=== PATIENT | female | born 1995 | race Caucasian/White ===

== ENCOUNTER 2020-03-28 15:31 | Emergency (ER) | payer BC, SELFPAY ==
[2020-03-28 15:45] VITALS: BP 132/74; PULSE 105; RESP 20; TEMP 36.8; O2SAT 97; BMI 25.6
--- NOTE | 2020-03-28 16:06 | HMH.EDUTC ---
[facility] [place] Clinical Impression: Viral syndrome Pharyngitis Qualifiers: Pharyngitis/tonsillitis etiology: unspecified etiology Qualified Code(s): J02.9 - Acute pharyngitis, unspecified Disposition: Home, Self-Care Condition on Discharge: Good Instructions: Preventing the Spread of Coronavirus Discharge Instructions Additional Instructions: Drink plenty of fluids. Take tylenol for pain or fever. Take the medications as directed. Follow up with your regular doctor. GO TO THE ER FOR ANY WORSENING SYMPTOMS Prescriptions: Ondansetron [Zofran 4mg ODT] 4 mg PO Q8HP PRN #12 tab.rapdis PRN Reason: Nausea Transmission Status: Received by [facility] #[id number] Azithromycin [Z-Ernesto 250mg Tab*] 250 mg PO UD DOSE PK #6 tab Transmission Status: Received by [facility] #[id number] Referrals: Jean Grissom [Primary Care Provider] - Forms: Work/School Release Time of Disposition: 16:10 Medical Decision Making - Medical Records Medical records reviewed: No: I reviewed the patient's medical records. - Stu Inquiry Pt receiving controlled substance: No Vital Signs: 03/28/20 15:45 03/28/20 16:19 Temperature 98.2 F 98.2 F Temperature Source Oral Pulse Rate 105 H Pulse Rate [Left Brachial] 105 H Respiratory Rate 20 20 Blood Pressure 132/74 Blood Pressure [Right Arm] 132/74 Blood Pressure Mean [Right Arm] 93 Blood Pressure Source [Right Arm] Automatic Cuff Blood Pressure Position [Right Arm] Sitting 02 Sat by Pulse Oximetry 97 Oxygen Delivery Method Room Air Orders (Tests/Meds): ORDERS Category Date Time Status Covid-19 Nasal PCR ([facility]) Routine Lab 03/28/20 15:40 Received [facility] [place] HPI - General Stated complaint: sore throat cough sob headache weakness abd pain Time Seen by Provider: 03/28/20 16:06 Mode of Arrival: Ambulatory Source of Information: Patient Limitations: No Limitations Description of Symptoms (Recalled from Triage Doc. by RN): PATIENT C/O SORE THROAT, HEADACHE, BODY ACHES, CHILLS, FEVER, DIARRHEA, VOMITING, AND COUGH SINCE TUESDAY. NO KNOWN DIRECT SICK CONTACTS HEENT Symptoms (Recalled from RN notes): Yes Resp Symptoms (Recalled from RN notes): No Skin Symptoms (Recalled from RN notes): No MS Symptoms (Recalled from RN notes): Yes Functional Status (Recalled from RN notes): WNL - History of Present Illness Provider Complaint: She states that for the past 2 days she has had fever, chills, body aches, n/v/d. 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 - Related Data Previous Rx's Medication Instructions Recorded Azithromycin [Z-Ernesto 250mg Tab*] 250 mg PO UD DOSE PK #6 tab 03/28/20 Ondansetron [Zofran 4mg ODT] 4 mg PO Q8HP PRN #12 tab.rapdis 03/28/20 Allergies Allergy/AdvReac Type Severity Reaction Status Date / Time No Known Allergies Allergy Verified 03/28/20 15:54 - Worker's Comp Is this a Worker's Comp case?: No H History - Hepatitis A Screen Drug use history?: No High risk sexual behaviors?: No History of sexually transmitted infection?: No Currently employed?: No Childcare worker?: No Do you have indoor plumbing?: Yes Do you have electricity?: Yes Attestation statement:: This patient has been screened for Hepatitis A risk factors. I have reviewed the patient's past medical history: Yes - Social History Alcohol Intake: never Occupational Status: other ROS Obtained: Yes All systems reviewed & no additional complaints - Constitutional Constitutional: Reports system reviewed and no additional complaints, except as docu - Eyes Eyes: Reports system reviewed and no additional complaints, except as docu - ENT Ears, Nose, Mouth, and Throat: Reports system reviewed and no additional complaints, except as docu - Cardiovascular Cardiovascular: Reports system reviewed and no additional complaints, except as docu - Respiratory Respiratory: Yes system reviewed and
[2020-03-28 16:19] VITALS: BP 132/74; PULSE 105; RESP 20; TEMP 36.8; O2SAT 97
[2020-03-28 21:04] LABS: UTC Influenza A Antigen Negative (Negative); UTC Strep Screen (Rapid) Negative (Negative)
[2020-03-28 21:05] LABS: UTC Influenza B Antigen Negative (Negative)
== END 2020-03-28 16:20 | disposition home or self-care (01) ==
PROVIDERS: Emergency Provider Nurse Practitioner Family; PCP Family Medicine
DX: Z20.828 Contact with and (suspected) exposure to other viral communicable diseases (principal); B34.9 Viral infection, unspecified
CPT/HCPCS: 87804; 87880; 99202; U0003

== ENCOUNTER 2021-12-16 11:36 | Emergency (ER) | payer BC, SELFPAY ==
[2021-12-16 12:13] VITALS: BP 112/75; PULSE 79; RESP 16; TEMP 36.9; O2SAT 97; BMI 26.6
[2021-12-16 12:25] LABS: UTC Strep Screen (Rapid) Negative (Negative)
--- NOTE | 2021-12-16 12:46 | HMH.EDUTC ---
[facility] [place] Clinical Impression: Acute bronchitis Qualifiers: Bronchitis organism: unspecified organism Qualified Code(s): J20.9 - Acute bronchitis, unspecified Disposition: Home, Self-Care Condition on Discharge: Good Instructions: Acute Bronchitis, DI for Acute Bronchitis Additional Instructions: Drink plenty of fluids. Take tylenol or ibuprofen for pain or fever. Take the medications as directed. Follow up with your regular doctor. GO TO THE ER FOR ANY WORSENING SYMPTOMS Prescriptions: Brompheniramine/Pseudoephed/Dm [Bromfed Dm Cough Syrup] 5 ml PO Q6HP PRN #240 ml PRN Reason: Cough Transmission Status: Received by [facility] #[id number] methylPREDNISolone [Medrol] 4 mg PO DIRECTED 6 Days #21 packet Transmission Status: Received by [facility] #[id number] Azithromycin [Z-Ernesto 250mg Tab*] 250 mg PO UD DOSE PK #6 tab Transmission Status: Received by [facility] #[id number] Referrals: Jean Grissom [Primary Care Provider] - Forms: Work/School Release Medical Decision Making - Medical Records Medical records reviewed: No: I reviewed the patient's medical records. - Stu Inquiry Pt receiving controlled substance: No Vital Signs: 12/16/21 12:13 12/16/21 12:56 Temperature 98.4 F 98.4 F Temperature Source Oral Pulse Rate 79 Pulse Rate [Left] 79 Respiratory Rate 16 16 Blood Pressure 112/75 Blood Pressure [Right Arm] 112/75 Blood Pressure Mean [Right Arm] 87 02 Sat by Pulse Oximetry 97 - Lab Data Lab results reviewed: Yes: I reviewed the patient's lab results. Lab Results 12/16/21 12:13: Strep Scn [facility] [place] [facility] [place] - General Stated complaint: Cough, bodyaches, fever Time Seen by Provider: 12/16/21 12:46 Mode of Arrival: Ambulatory Source of Information: Patient Limitations: No Limitations Description of Symptoms (Recalled from Triage Doc. by RN): patient comes in with complaints of cough, fever, body aches. symptoms have been ongoing for 3 weeks. HEENT Symptoms (Recalled from RN notes): No Resp Symptoms (Recalled from RN notes): Yes Skin Symptoms (Recalled from RN notes): No MS Symptoms (Recalled from RN notes): No Functional Status (Recalled from RN notes): n/a - History of Present Illness Provider Complaint: She states that for the past 2 weeks she has had a cough, chest congestion, and she has felt bad. She has had 2 negative home covid-19 tests. - Related Data Previous Rx's Medication Instructions Recorded Azithromycin [Z-Ernesto 250mg Tab*] 250 mg PO UD DOSE PK #6 tab 03/28/20 Ondansetron [Zofran 4mg ODT] 4 mg PO Q8HP PRN #12 tab.rapdis 03/28/20 Azithromycin [Z-Ernesto 250mg Tab*] 250 mg PO UD DOSE PK #6 tab 12/16/21 Brompheniramine/Pseudoephed/Dm 5 ml PO Q6HP PRN #240 ml 12/16/21 [Bromfed Dm Cough Syrup] methylPREDNISolone [Medrol] 4 mg PO DIRECTED 6 Days #21 12/16/21 packet Allergies Allergy/AdvReac Type Severity Reaction Status Date / Time No Known Allergies Allergy Verified 12/16/21 12:19 - Worker's Comp Is this a Worker's Comp case?: No [facility] History - Hepatitis A Screen Attestation statement:: This patient has been screened for Hepatitis A risk factors. I have reviewed the patient's past medical history: Yes - Social History Alcohol Intake: never Occupational Status: other ROS Obtained: Yes All systems reviewed & no additional complaints - Constitutional Constitutional: Reports as per HPI - Eyes Eyes: Denies eye discharge - ENT Ears, Nose, Mouth, and Throat: Reports as per HPI - Cardiovascular Cardiovascular: Denies chest pain - Respiratory Respiratory: Reports chest congestion, Reports cough Physical Exam - General General appearance: alert, in no apparent distress - Head Head exam: atraumatic, normocephalic, normal inspection - Eye Eye exam: Present: normal appearance, PERRL, EOMI - ENT ENT exam: Present: normal exam, normal oropharynx, mucous membran
[2021-12-16 12:56] VITALS: BP 112/75; PULSE 79; RESP 16; TEMP 36.9
== END 2021-12-16 13:05 | disposition home or self-care (01) ==
PROVIDERS: Emergency Provider Nurse Practitioner Family; PCP Family Medicine
DX: J20.9 Acute bronchitis, unspecified (principal)
CPT/HCPCS: 87880; 99212; G0463

== ENCOUNTER 2023-01-14 09:58 | Emergency (ER) | payer BC, SELFPAY ==
[2023-01-14 09:59] VITALS: BP 115/81; PULSE 79; RESP 19; TEMP 37.1; O2SAT 99; BMI 25.9
--- NOTE | 2023-01-14 10:16 | EXP.UTC ---
Discharge Plan Disposition Patient Disposition: Home, Self-Care Condition: Good Prescriptions Prescriptions: New pseudoephedrine HCl [Sudafed 12 Hour] 120 mg tablet extended release 120 mg PO Q12H PRN (Reason: nasal congestion) Qty: 20 0RF No Action azithromycin 250 MG tablet 250 mg PO UD DOSE PK Qty: 6 0RF Rx Instructions: Take two (2) tablets today, then one (1) tablet days #2 thru #5 ondansetron 4 MG tablet,disintegrating 4 mg PO Q8HP PRN (Reason: Nausea) Qty: 12 0RF azithromycin 250 MG tablet 250 mg PO UD DOSE PK Qty: 6 0RF Rx Instructions: Take two (2) tablets today, then one (1) tablet days #2 thru #5 methylprednisolone 4 MG tablets,dose pack 4 mg PO DIRECTED 6 Days Qty: 21 0RF unbgoczuzgcincr-togwckdll-BR 118 ML syrup 5 ml PO Q6HP PRN (Reason: Cough) Qty: 240 0RF Referrals Follow up/Referrals: Gibran Grissom [Primary Care Provider] - See instructions Activity Restrictions/Add. Instructions Additional Instructions/Restrictions: *Monitor Temp, Over the counter Motrin or Tylenol as directed/as needed Tylenol every 4 hours and Motrin every 6 hours (as long as your family doctor has told you that you can take it) for fever or pain. and straight to ER if unable to lower temp less than 101.0 after medication given *Warm salt water gargles may help to soothe the throat *Throat Lozenges? *Warm fluids like tea with honey may help to soothe the throat? *Sleep elevated *Humidifier/Vaporizer *Flonase 2 sprays in each nostril daily but be aware that it may take 2-3 days before you notice improvement *Bromfed may cause drowsiness. Know how it effects you (your child) before driving, caring for small child, or sending your child to school. Not other antihistamines/allergy medications while taking bromfed Your throat swab was sent for culture. Those results are typically sent to your primary care. Be sure to follow up in 2-3 days with your family doctor/primary care physician if no improvement so they can review those result and treat if necessary. If you don?t have a primary care doctor, I recommend you get one but in the mean time, you will have to return to a walk in clinic Follow up IMMEDIATELY for new or worsening symptoms or no Noticeable improvement over the next 48-72 hours. 911 for difficulty breathing or swallowing You were tested for today for COVID19 your test result should be back in the next 24 You may check your results on the [facility] My Health Portal later this evening or tomorrow for the results Clinical Impressions Clinical Impression: Viral syndrome Stand Alone Forms Stand Alone Forms: Work/School Release Instructions Patient Instructions: Sore Throat, DI for Nasal Congestion, DI for Viral Syndrome Discharge ED Provider: Mary Alice Amato [facility] [place] General Stated complaint: sore throat, vomiting, cough, congestion Mode of Arrival: Ambulatory Source of Information: Patient Limitations: No Limitations Time Seen by Provider: 01/14/23 10:16 Description of Symptoms (Recalled from Triage Doc. by RN): Patient reports high fever, cold chills, sore throat, body aches and vomiting for 3 days. HEENT Symptoms (Recalled from RN notes): Yes Resp Symptoms (Recalled from RN notes): No Skin Symptoms (Recalled from RN notes): No MS Symptoms (Recalled from RN notes): No Functional Status (Recalled from RN notes): wnl History of Present Illness Provider Complaint: Patient states that she hasnt felt well for the last 3 days States that she has been having body aches, chills, sore throat, headache and N/V States that today she wasnt feeling any better so she came in to get checked Related Data Previous Rx's Medication Instructions Recorded azithromycin 250 mg tablet 250 mg PO UD DOSE PK #6 tabs 03/28/20 ondansetron 4 mg disintegrating 4 mg PO Q8HP PRN Nausea ##12 03/28/20 tablet azithromycin 250 mg tablet 250 mg PO UD DOSE PK #6 tabs
[2023-01-14 10:30] LABS: UTC Influenza A Antigen Negative (Negative); UTC Strep Screen (Rapid) Negative (Negative)
[2023-01-14 10:30] LABS: UTC Pregnancy Test, Urine Negative (Negative)
[2023-01-14 10:31] LABS: UTC Influenza B Antigen Negative (Negative)
[2023-01-14 10:52] VITALS: BP 115/81; PULSE 79; RESP 19; TEMP 37.1; O2SAT 99
== END 2023-01-14 10:53 | disposition home or self-care (01) ==
PROVIDERS: Emergency Provider Nurse Practitioner; PCP Pediatrics
DX: R51.9 Headache, unspecified; R11.2 Nausea with vomiting, unspecified; R68.83 Chills (without fever); B34.9 Viral infection, unspecified
CPT/HCPCS: 81025; 87635; 87804; 87880; 99212; 99214; G0463

== ENCOUNTER 2024-06-28 14:40 | Emergency (ER) | payer MEDICAID, SELFPAY ==
[2024-06-28 14:59] VITALS: BP 141/84; PULSE 82; RESP 18; TEMP 36.8; O2SAT 100; BMI 27.6
--- NOTE | 2024-06-28 15:34 | PC.NURSE ---
rounded on the pt. the pt voices that she does not need anything at this time. call light is within reach of the pt.
--- NOTE | 2024-06-28 15:39 | ED_ITS ---
Discharge Plan Disposition Patient Disposition: Home, Self-Care Prescriptions Prescriptions: New dexamethasone 6 mg tablet 6 mg PO DAILY Qty: 5 0RF metoclopramide HCl [Reglan] 10 mg tablet 10 mg PO Q6H PRN (Reason: nausea and vomiting) Qty: 14 0RF No Action sumatriptan succinate 100 mg tablet 100 mg PO DIRECTED promethazine 25 mg tablet 25 mg PO NEEDED PRN (Reason: Headache) Referrals Follow up/Referrals: Satya Douglas [Primary Care Provider] - See instructions Activity Restrictions/Add. Instructions Additional Instructions/Restrictions: Call your family doctor to establish care for this visit to the emergency department and schedule follow-up within 48 hours to ensure improvement. If you have any worsening of your condition or any other concerning signs or symptoms, return to the emergency department or your primary care doctor for further evaluation. Talk to your family doctor about potentially starting migraine abortive medications. Other migraine abortive medications have been sent to your pharmacy. Try to start with Tylenol and Motrin, 1000 mg and 600 mg, respectively. Drink plenty of fluids. If this does not help, magnesium oxide 800 mg, Decadron 6 mg, Reglan 10 mg and lay down and cool quiet place. Clinical Impressions Clinical Impression: Migraine Print Language Print Language: [place]ian Discharge ED Provider: Gold Newby General Adult HPI General Chief complaint: Headache Stated complaint: migraine Time Seen by Provider: 06/28/24 15:28 Mode of Arrival: Ambulatory Source of Information: Patient Limitations: No Limitations Description of Symptoms (Recalled from ER Triage Doc. by RN): Pt presents for evaluation of a headache that she has had for 2 days. Pt was seen by her PCP and was given sumatriptan, and promethazine. Pt is supposed to be getting an outpatient MRI done. Pt states her headache has progressively become worse, now has a stiff neck. Pt still has nausea History of Present Illness HPI narrative: Please note that above description of symptoms, in this electronic medical record under categorization of recalled from ER triage doctor by RN are reflective of an initial nursing assessment, however, is not reflective of my full history and physical exam that was personally taken and clarified. Consequentially, this preceding description of symptoms, which may include the patient's categorized chief complaint in the EMR, do not reflect my personal clinical impression, and the ultimate description of history of present illness and patient stated complaints should be deferred to this section of the note. Unless stated otherwise or congruent with this section of the note, additional signs, symptoms, or incongruence should be interpreted as inaccurate with my clinical impression. Related Data Home Medications ?Medication ?Instructions ?Recorded ?Confirmed promethazine 25 mg tablet 25 mg PO NEEDED PRN Headache 06/28/24 06/28/24 sumatriptan succinate 100 mg tablet 100 mg PO DIRECTED 06/28/24 06/28/24 Previous Rx's ?Medication ?Instructions ?Recorded dexamethasone 6 mg tablet 6 mg PO DAILY #5 tabs 06/28/24 metoclopramide HCl 10 mg tablet 10 mg PO Q6H PRN nausea and 06/28/24 (Reglan) vomiting #14 tabs Allergies Allergy/AdvReac Type Severity Reaction Status Date / Time No Known Allergies Allergy Verified 06/28/24 15:20 [facility] Disclaimer: The information contained in this section may have been updated after the patient was seen, as this information can be updated by other users. Social History (Updated 01/14/23 @ 10:50 by Mary Alice Amato APRN) Smoking Status: Never smoker alcohol intake: never current occupational status: other Travel in the last 8 weeks: None Have you lived/traveled outside [place] in past 30 days?: No Contact w/someone who lives/traveled outside [place] past 30 days?: No Exposure to someone with infectious disease in past 14 days?: No Do you have a fever (greater than 100.4 F or 38 C)?: No Have you tested positive for COVID-19: No Exposed to someone with COVID-19 in past 14 days?: No Do you have a sore throat?: No Do you have a cough?: No Do you have any weakness?: No Do you have any diarrhea?: No Are you experiencing any unusual bleeding?: No Do you have any muscle aches/pain?: No Do you have any abdominal pain?: No Are you experiencing loss of taste or smell?: No ROS Obtained: Yes All systems reviewed & no additional complaints except as documented Physical Exam General General appearance: alert Head Head exam: atraumatic and normocephalic Eye Eye exam: Present normal appearance, PERRL and EOMI Neck Neck exam: Present normal inspection, full ROM and trachea midline Respiratory Respiratory exam: Absent respiratory distress, wheezes, stridor, accessory muscle use or prolonged expiratory phase Cardiovascular Cardiovascular exam: Present other (Pulses equal symmetric in upper and lower extremities) Abdominal Exam Abdominal exam: Present soft; Absent distention, tenderness or pulsatile mass Extremities Exam Extremities exam: Absent edema Neurological Exam Neurological exam: Present alert, oriented X3 and CN II-XII intact; Absent motor sensory deficit Skin Skin exam: Present warm and dry; Absent diaphoresis or erythema Medical Decision Making Medical Records Medical records reviewed: Yes I reviewed the patient's medical records. Screening: Per USPSTF and CDC recommendations, given the prevalence of disease in our region, it is our hospital?s policy to screen for HIV and viral Hepatitis for all patients aged 18 and over and those with ongoing risk factors. Stu Inquiry Pt receiving controlled substance: No Stu was queried for this patient: No Vital Signs: 06/28/24 14:59 Temperature 98.3 F Temperature Source Oral Pulse Rate [Right] 82 Respiratory Rate 18 Blood Pressure [Right Arm] 141/84 H Blood Pressure Mean [Right Arm] 103 Blood Pressure Source [Right Arm] Automatic Cuff Blood Pressure Position [Right Arm] Sitting 02 Sat by Pulse Oximetry 100 Oxygen Delivery Method Room Air Orders (Tests/Meds): ED MEDICATIONS Discontinued Medications Generic Name Dose Route Start Last Admin Trade Name Freq PRN Reason Stop Dose Admin Acetaminophen 1,000 mg 06/28/24 15:36 06/28/24 15:51 Acetaminophen 500mg Tab PO 06/28/24 15:37 1,000 mg ONCE ONE Administration Dexamethasone 10 mg 06/28/24 15:36 06/28/24 15:54 Dexamethasone 4mg Tablet PO 06/28/24 15:37 10 mg ONCE ONE Administration Diphenhydramine HCl 50 mg 06/28/24 15:36 06/28/24 15:54 Diphenhydramine 50mg/Ml Vial IV 06/28/24 15:37 50 mg ONCE ONE Administration Magnesium Sulfate 2 gm in 50 mls @ 50 mls/hr 06/28/24 15:36 06/28/24 15:55 Magnesium Sulfate 2gm/50ml Premix IV 06/28/24 16:35 50 mls/hr ONCE ONE Administration Lactated Ringer's 1,000 mls @ 999 mls/hr 06/28/24 15:37 06/28/24 15:58 Lactated Ringer's 1000 Ml Bag IV 06/28/24 16:37 999 mls/hr .Q1H1M ONE Administration Ketorolac Tromethamine 15 mg 06/28/24 15:36 06/28/24 15:55 Ketorolac 30mg/Ml Vial IV 06/28/24 15:37 15 mg ONCE ONE Administration Metoclopramide HCl 10 mg 06/28/24 15:36 06/28/24 15:55 Metoclopramide Hcl 10mg/2ml Vial IVP 06/28/24 15:37 10 mg ONCE ONE Administration Medical Decision Narrative: This is a 29-year-old female with history of tension headaches and migraines presenting with migraine. Patient states that it started a couple days prior to this with tension in her neck radiating up to the back of her head and is now throbbing, refractory to Tylenol and ibuprofen. Is moderate in intensity, photophobic. No fevers or chills, nausea or vomiting, vision changes. No neurologic deficits reported. Patient states that she is only had migraines this bad a couple of times in the past. Saw her family doctor who recommended she get an MRI out of concern for an aneurysm, so she came to the emergency department. Patient does not believe she has an aneurysm, I also do not believe this to be the case. No neurologic deficits. No family or personal history of aneurysm. Migraine headache is waxing and waning, associated with worsening stress at home and in work and associated with muscle tension bilateral sides of the neck. Denies meningismus, difficulty or pain with range of motion of neck, fevers, or any other infectious symptoms. History was obtained via conversation with patient. On arrival, patient hemodynamically stable, alert, oriented x4, appropriate, GCS 15, moving all extremities spontaneously, pupils equal and reactive to light. Full physical exam performed and significant for NIHSS 0, clinically very well-appearing patient. Neurologically intact, pupils equal and reactive. No meningismus, normal range of motion of neck. She does have muscle tension bilateral trapezius muscles up to the posterior occiput, no midline tenderness. Differential includes tension headache, migraine, less likely to be aneurysm, dissection, intracranial mass, among others. Patient placed on continuous cardiac monitoring and continuous pulse ox with initial blood pressure 141/84, heart rate 82, saturation 100% on room air. Because patient still very clinically well-appearing, no systemic signs or symptoms, neurologically intact, hematologic labs and CT of the head and neck were considered, but not deemed necessary. Patient given migraine cocktail. Patient was placed in observation beginning at 345 in order to give meds, reevaluate and determine need for admission versus home-going. The patient was provided give meds and reevaluate while awaiting results. On reevaluation, 445, patient states she has no symptoms, feeling much better, ready to go. At this time, I feel patient is appropriate for discharge. Total observation time 1 hour. [employer] disclaimer Much of this encounter note is an electronic professor of graphic design spoken language to printed text. Electronic professor of graphic design of the spoken language may permit errors. Although I have reviewed the note, some errors may still exist. Critical Care Critical Care Time Critical Care Time: No
[2024-06-28] MEDS: ACETAMINOPHEN 500MG TAB 1000 MG PO (15:51)
[2024-06-28] MEDS: DEXAMETHASONE 4MG TABLET 10 MG PO (15:54)
[2024-06-28] MEDS: diphenhydrAMINE 50MG/ML VIAL 50 MG IV (15:54)
[2024-06-28] MEDS: KETOROLAC 30MG/ML VIAL 15 MG IV (15:55)
[2024-06-28] MEDS: METOCLOPRAMIDE HCL 10MG/2ML VIAL 10 MG IVP (15:55)
[2024-06-28] MEDS: MAGNESIUM SULFATE IN WATER 2 GM/50 ML PIGGYBACK IV (15:55)
[2024-06-28] MEDS: LACTATED RINGERS 1000ML 1,000 ML 999 ML IV (15:58)
[2024-06-28 16:55] VITALS: BP 136/78; PULSE 72; RESP 18; TEMP 37; O2SAT 98
== END 2024-06-28 16:55 | disposition home or self-care (01) ==
PROVIDERS: Emergency Provider Emergency Medicine; PCP Family Medicine
DX: G43.909 Migraine, unspecified, not intractable, without status migrainosus (principal); R11.0 Nausea
CPT/HCPCS: 96361; 96365; 96374; 96375; 99284; J1200; J1885; J2765; J3475; J7120; J8540

== ENCOUNTER 2024-11-07 15:04 | Outpatient (CLI) | payer OTHER, SELFPAY ==
--- OUTSIDE RECORDS SUMMARY | 2024-04-18 09:00 | XMS_ITS ---
Author Organization [facility] Address [address] [facility] [address] [place] [address] Care Team Providers Care Machine Setter Name Role Phone Melchor Laura Unavailable [phone] REASON FOR VISIT 6 WK PP Medications Medication SIG (Take, Route, Frequency, Duration) Notes Start Date End Date Status Tamsulosin HCl 0.4 MG Capsule Oral; Duration: 30 Days Acti ve oxyCODONE-Acetaminophen 5-325 MG Tablet TAKE 1 TABLET BY MOUTH EVERY 4 HOURS NEEDED FOR MODERATE PAIN Oral; Duration: 3 Days Active Social History Sex Assigned At : Social History Observation Description Sex Assigned At Female Encounters Encounter Location Date Provider Diagnosis [facility] [address] [facility] [address] [place] [address] 04/18/2024 Laura Roche Encounter for routin e follow-up Z39.2 and Encounter for screening for maternal depression Z13.32 Assessments Encounter Date Diagnosis (ICD Code) Assessment Notes Treatment Notes Treatment Clinical Notes Section Notes 04/18/2024 Encounter for routine follow-up (ICD-10 - Z39.2) 04/18/2024 Encounter for screening for maternal depression (ICD-10 - Z13.32) Plan Of Treatment No Information History and Physical Notes * HPI (History of Present Illness) Category Sub-Category Detail Notes Category Not es Visit Baby Name and Gender :, male Feeding Method :, breast Contraceptive Plans : Delivery type :, primary c/s Baby Weight :5#9oz Delivering Provider :Shannon Monsivais DO Date of Delivery 03/01/2024 Maternal Concerns : /Delivery Complications / Del coco Complications: None Baby Health Status Baby Health Status: Healthy - No complications EPDS Screening Screening Result Score: : Thoughts of self-harm: : Examination Category Sub-Category Detail Notes Category Not es General Examination GENERAL APPEARANCE: Well dev eloped, well nourished, alert in no acute distress NEURO/PSYCH: Oriented to person, place, and time. Mood pleasant, normal affect CARDIOPULMONARY: Respiratory effort i s even and unlabored ABDOMINAL/GASTROINTESTINAL: Abdomen nont laly, no masses palpated Incision Check Incision(s) : Progress Notes * Lanny OSEGUERADOB:1995 (29 yo F)Acc No.[id number]:04/18/2024 Progress Note Patient: Lanny Gunter Provider: Colten Roche MD :1995 A ge:29 Y S ex:Female Date:04/18/2024 Address:[address] [place], [place] [id number] Subjective: * Chief Complaints: * 6 WK PP * HPI: P ostpartum Visit: Date of Delivery 1 . Delivering Provider : Shannon Monsivais DO. Delivery type : , primary c/s. /Delivery Complications P regnancy / Delivery Complications N one Baby Name and Gender : , male. Baby Weight : 5#9oz. Baby Health Status B renaldo Health Status H ealthy - No complications Feeding Method : , breast. Maternal Concerns : . Contraceptive Plans : . E PDS Screening: Screening Result S core : T houghts of self-harm : * ROS: N egative Except as Noted in HPI. * Medical History: Anxiety Kidney steones Anemia COVID Chlamydia Kidney stones Medical History Verified * Urology Physician History: B irth control (Historical) n one. L ast Pap Smear/HPV Date (Historical) U nknown. * OB History: P regnancy History (GPA) Full Term 2 Living 2 Vaginal Deliveries 1 C-Sections 1 P regnancy # 1: M AB x2. 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 P regnancy # 3: 1 , Primary , male, 5#9oz, Shannon Monsivais DO. * Surgical History: T&A-1998 c/s 2023 Surgical History verified. * Hospitalization/Major Diagno stic Procedure: COVID vaginal delivery c/s 2023 Hospitalization Verified. * Family History: M other: dvt. F amily History Verified.. breast ca, stroke, Auto immubne disease. * Social History: Social History Verified. No Social History documented. * Medications: T akingoxyCODONE-Acetaminophen 5-325 MG Tablet TAKE 1 TABLET BY MOUTH EVERY 4 HOURS NEEDED FOR MODERATE PAIN Oral Tamsulosin HCl 0.4 MG Capsule Oral Medication List reviewed and reconciled with the patientTaking oxyCODONE-Acetaminophen 5-325 MG Tablet TAKE 1 TABLET BY MOUTH EVERY 4 HOURS NEEDED FOR MODERATE PAIN Oral Taking Tamsulosin HCl 0.4 MG Capsule Oral Medication List reviewed and reconciled with the patient * Allergies: y esAllergies Verified. Objective: * Examination: G eneral Examination: GENERAL APPEARANCE: W ell developed, well nourished, alert in no acute distress. NEURO/PSYCH: O riented to person, place, and time. Mood pleasant, normal affect. CARDIOPULMONARY: R espiratory effort is even and unlabored.? ABDOMINAL/GASTROINTESTINAL: A bdomen nontender, no masses palpated. I ncision Check: Incision(s) : . Assessment: * Assessment: 1. E ncounter for routine follow-up - Z39.2 (Primary) 2 . E ncounter for screening for maternal depression - Z13.32 Plan: * Procedure Codes: 9 6160 PT-FOCUSED HLTH RISK [id number] [facility] * Preventive Medicine: R eleased to normal activities without restrictions including work/school, physical and sexual activity. Discussed resumption of menses and control options. Reviewed the importance of maintaining a healthy lifestyle. Discussed pelvic floor health consideration for pelvic floor therapy as appropriate. All questions were answered. Billing Information: * Visit Code: ppv Post Visit. * Procedure Codes: 01969 PT-FOCUSED HLTH RISK ASSMT. 0503F [facility]. * Electronic signature of Too Roche MD on 11/07/2024 at 03:08 PM EDT Sign off status: Pending Visit Status: R /S (Rescheduled) * Provider: Colten Roche MD Date: 1 06/19/2023 Generated for Hellen garcia/Karrie/Jessie on: 0 11/07/2024 03:08 PM EDT
--- OUTSIDE RECORDS SUMMARY | 2024-11-07 15:08 | XMS_ITS | Encounter Summary ---
Author Organization Healthcare Address [address] [place] [address] Care Team Providers Care [employer] Name Role Phone Naima Cruz Primary Care Provider [phone] Anastasiia Garcia APRN Primary Care Provider [phone] Encounter Details Date Type Department Care Team (Late st Contact Info) Description 11/25/2023 Orders Only External Location [address] [place] [address] Provider, External Social History Tobacco Use Types Packs/Day Years Used Date Smoking Tobacco: Never Comments Unknown Sex and Gender Information Value Date Recorded Sex Assigned at Female 01/09/2024 10:29 PM EDT Legal Sex Female 8:11 PM EDT Gender Identity Female 01/09/2024 10:29 PM EDT Sexual Orientation Not on file documented as of this encounter Plan of Treatment Not on file documented as of this encounter Procedures Procedure Name Priority Date/Time Associated Diagnosis Comments CT MSK OUTSIDE IMAGES 11/25/2023 9:32 PM EDT documented in this encounter Results * CT MSK OUTSIDE IMAGES (11/25/2023 9:32 PM EDT) Anatomical Region Laterality Modality Computed Tomogra phy 11/25/2023 9:32 PM EDT us External Provider IMG CT PROCEDURES Final Result documented in this encounter Visit Diagnoses Not on filedocumented in this encounter Care Teams [employer] Relationship Specialty Start Date End Date Naima Cruz PA [address] [place] [id number] PCP - General 09/12/20 02/27/24 Anastasiia Garcia APRN [address] [place] [id number] PCP - General 02/28/24 documented as of this encounter
--- OUTSIDE RECORDS SUMMARY | 2024-11-07 15:08 | XMS_ITS | Patient Health Record ---
Author Organization [facility] Address [address] [place] [address] Care Team Providers Care Non Emergency Services Ambulance Driver Name Role Phone Laura Roche Unavailable [phone] Uzair, Shelley Unavailable [phone] Kaley Isabel Unavailable [phone] Jovita Kirkpatrick Unavailable [phone] Shannon Monsivais Unavailable [phone] Sheila Zavala Unavailable [phone] Violet Mcqueen Unavailable [phone] Allergies No Known Allergies Results Component Value Reference Range Flag Notes Group B Strep by PCR Reviewed date:02/26/2024 11:50:33 AM Interpretation:Positive Performing Lab: Notes/Report: [facility] Testing performed at: [] [facility], [address] [place] [address], [place], [address], , Wardrobe Attendant: Jersey Tate, PhD Strep Gp B VALENTÍN Positive Negative A intrapartum prophylaxis of GBS colonization. testing is warranted if resistance to clindamycin is noted. Centers for Disease Control and Prevention (CDC) and guidelines for prevention of group B streptococcal (GBS) disease specify co-collection of a Penicillin G, ampicillin, or cefazolin are indicated for vaginal and rectal swab specimen to maximize sensitivity of use of clindamycin only on GBS isolates from penicillin- GBS detection. Per the CDC and ACOG, swabbing both the Reflex susceptibility testing should be performed prior to of detection compared with sampling the vagina alone. [employer] (ACOG) lower vagina and rectum substantially increases the yield anaphylaxis. Treatment with vancomycin without additional allergic women who are considered a high risk for CBC (NO DIFF) Reviewed date:12/29/2023 09:26:19 AM Interpretation:Normal Performing Lab: Notes/Report: WBC, CORRECTED 8.34 3.40-10.80 10*3/mm3 ERYTHROCYTES IN BLOOD BY AUTOMATED COUNT 3.85 3.77-5.28 10*6/mm3 HEMOGLOBIN (G/DL) IN BLOOD 11.5 12.0-15.9 g/dL L HEMATOCRIT (%) BY AUTOMATED COUNT 33.8 34.0-46.6 % L RBC MCV (FL) BY AUTOMATED COUNT 87.8 79.0-97.0 fL RBC MCH (PG) BY AUTOMATED COUNT 29.9 26.6-33.0 pg RBC MCHC (G/DL) BY AUTOMATED COUNT 34.0 31.5-35.7 g/dL RBC RDW (%) BY AUTOMATED COUNT 12.4 12.3-15.4 % RDW-SD 39.3 37.0-54.0 fl MEAN PLATELET VOLUME (FL) BY AUTOMATED COUNT 10.4 6.0-12.0 fL PLATELETS BY AUTOMATED COUNT 199 140-450 10*3/mm3 Lab specimens r eceived at a [facility].?See result details for the performing location information. GLUCOSE, POST 50 GM GLUCOLA Reviewed date:12/29/2023 09:26:32 AM Interpretation:normal - 82 Performing Lab: Notes/Report: GESTATIONAL GCT 82 65-139 mg/dL Lab spe cimens received at a [facility].?See result details for the performing location information. ANTIBODY SCREEN Reviewed date:12/29/2023 09:26:24 AM Interpretation:Negative Performing Lab: Notes/Report: ANTIBODY SCREEN Negative Lab speci mens received at a [facility].?See result details for the performing location information. TREPONEMA PALLIDUM (SYPHILIS ) SCREENING CASCADE Reviewed date:12/29/2023 09:26:12 AM Interpretation:Negative Performing Lab: Notes/Report: Reactive results will reflex RPR testing. TREPONEMAL AB TOTAL Non-Reactive Non-Reacti Lab specimens received at a [facility].?See result details for the performing location information. CBC (NO DIFF) Reviewed date:03/01/2024 08:51:47 AM Interpretation: Performing Lab: Notes/Report: WBC, CORRECTED 10.34 3.40-10.80 10*3/mm3 ERYTHROCYTES IN BLOOD BY AUTOMATED COUNT 4.05 3.77-5.28 10*6/mm3 HEMOGLOBIN (G/DL) IN BLOOD 11.4 12.0-15.9 g/dL L HEMATOCRIT (%) BY AUTOMATED COUNT 34.3 34.0-46.6 % RBC MCV (FL) BY AUTOMATED COUNT 84.7 79.0-97.0 fL RBC MCH (PG) BY AUTOMATED COUNT 28.1 26.6-33.0 pg RBC MCHC (G/DL) BY AUTOMATED COUNT 33.2 31.5-35.7 g/dL RBC RDW (%) BY AUTOMATED COUNT 13.4 12.3-15.4 % RDW-SD 41.4 37.0-54.0 fl MEAN PLATELET VOLUME (FL) BY AUTOMATED COUNT 10.8 6.0-12.0 fL PLATELETS BY AUTOMATED COUNT 238 140-450 10*3/mm3 Lab specimens r eceived at a [facility].?See result details for the performing location information. TYPE AND SCREEN Reviewed date:03/01/2024 08:51:34 AM Interpretation: Performing Lab: Notes/Report: ABO TYPE O RH TYPE Positive ANTIBODY SCREEN Negative T&S EXPIRATION DATE 03/03/2024 11:59:59 PM Lab specimens receiv ed at a [facility].?See result details for the performing location information. TREPONEMA PALLIDUM (SYPHILIS ) SCREENING CASCADE Reviewed date:03/01/2024 08:51:37 AM Interpretation: Performing Lab: Notes/Report: Reactive results will reflex RPR testing. TREPONEMAL AB TOTAL Non-Reactive Non-Reacti Lab specimens received at a [facility].?See result details for the performing location information. HEMOGLOBIN AND HEMATOCRIT, B LOOD Reviewed date:03/04/2024 07:17:53 PM Interpretation:9.5 Performing Lab: Notes/Report: HEMOGLOBIN (G/DL) IN BLOOD 9.5 12.0-15.9 g/dL L HEMATOCRIT (%) BY AUTOMATED COUNT 29.6 34.0-46.6 % L Lab specimens re ceived at a [facility].?See result details for the performing location information. CBC WITH AUTO DIFFERENTIAL Reviewed date:03/04/2024 07:17:45 PM Interpretation:10.1 Performing Lab: Notes/Report: WBC, CORRECTED 12.86 3.40-10.80 10*3/mm3 H ERYTHROCYTES IN BLOOD BY AUTOMATED COUNT 3.61 3.77-5.28 10*6/mm3 L HEMOGLOBIN (G/DL) IN BLOOD 10.1 12.0-15.9 g/dL L HEMATOCRIT (%) BY AUTOMATED COUNT 31.5 34.0-46.6 % L RBC MCV (FL) BY AUTOMATED COUNT 87.3 79.0-97.0 fL RBC MCH (PG) BY AUTOMATED COUNT 28.0 26.6-33.0 pg RBC MCHC (G/DL) BY AUTOMATED COUNT 32.1 31.5-35.7 g/dL RBC RDW (%) BY AUTOMATED COUNT 13.4 12.3-15.4 % RDW-SD 42.8 37.0-54.0 fl MEAN PLATELET VOLUME (FL) BY AUTOMATED COUNT 10.8 6.0-12.0 fL PLATELETS BY AUTOMATED COUNT 198 140-450 10*3/mm3 NEUTROPHILS RELATIVE PERCENT BY AUTOMATED COUNT 78.2 42.7-76.0 % H LYMPHOCYTES RELATIVE PERCENT BY AUTOMATED COUNT 14.3 19.6-45.3 % L MONOCYTES RELATIVE PERCENT BY AUTOMATED COUNT 6.4 5.0-12.0 % EOSINOPHILS RELATIVE PERCENT BY AUTOMATED COUNT 0.5 0.3-6.2 % BASOPHILS RELATIVE PERCENT BY AUTOMATED COUNT 0.2 0.0-1.5 % IMMATURE GRANULOCYTES RELATIVE PERCENT 0.4 0.0-0.5 % NEUTROPHILS ABSOLUTE COUNT BY AUTOMATED COUNT 10.05 1.70-7.00 10*3/mm3 H LYMPHOCYTES ABSOLUTE COUNT BY AUTOMATED COUNT 1.84 0.70-3.10 10*3/mm3 MONOCYTES ABSOLUTE COUNT BY AUTOMATED COUNT 0.82 0.10-0.90 10*3/mm3 EOSINOPHILS ABSOLUTE COUNT BY AUTOMATED COUNT 0.07 0.00-0.40 10*3/mm3 BASOPHILS ABSOLUTE COUNT BY AUTOMATED COUNT 0.03 0.00-0.20 10*3/mm3 IMMATURE GRANULOCYTES ABSOLUTE COUNT 0.05 0.00-0.05 10*3/mm3 NRBC (PER 100 WBCS) 0.0 0.0-0.2 /100 WBC Lab specimens received at a [facility].?See result details for the performing location information. BLOOD GAS, VENOUS, CORD Reviewed date:03/02/2024 08:58:54 AM Interpretation: Performing Lab: Notes/Report: SITE Umbilical PH CORD VENOUS 7.343 7.310-7.37 pH Units PCO2 CORD VENOUS 45.1 28.0-40.0 mm Hg H PO2 CORD VENOUS 18.6 21.0-31.0 mm Hg L HCO3 CORD VENOUS 24.5 18.6-21.4 mmol/L H BASE EXCESS CORD VENOUS -1.6 0.0-2.0 mmol/L L O2 SAT CORD VENOUS 36.5 TOTAL HEMOGLOBIN, BLOOD GAS 15.6 14-18 g/dL CO2 CONTENT 25.9 22-33 mmol/L TEMPERATURE 37.0 MODALITY Room Air FIO2 21 TOTAL RATE 0 PIP 0 Meter: [id number] Front End Mechanic: [id number] IPAP 0 EPAP 0 BLOOD GAS, ARTERIAL, CORD Reviewed date:03/02/2024 08:58:56 AM Interpretation: Performing Lab: Notes/Report: SITE Umbilical PH CORD ARTERIAL 7.24 7.22-7.30 pH Units PCO2 CORD ARTERIAL 57.5 43.3-54.9 mmHg H PO2 CORD ARTERIAL 11.1 11.5-43.3 mmHg L HCO3 CORD ARTERIAL 24.4 16.9-20.5 mmol/L H BASE EXCESS ARTERIAL CORD -4.2 0.0-2.0 mmol/L L O2 SAT CORD ARTERIAL 16.8 TOTAL HEMOGLOBIN, BLOOD GAS 16.1 14-18 g/dL CO2 CONTENT 26.2 22-33 mmol/L TEMPERATURE 37.0 MODALITY Room Air FIO2 21 TOTAL RATE 0 PIP 0 Meter: [id number] Front End Mechanic: [id number] IPAP 0 EPAP 0 NOTE 0 Lab specimens received at a [facility].?See result details for the performing location information. PRE-ECLAMPSIA PANEL Reviewed date:03/01/2024 08:51:42 AM Interpretation: Performing Lab: Notes/Report: ALKALINE PHOSPHATASE 108 39-117 U/L ALT (SGPT) 9 1-33 U/L AST (SGOT) 13 1-32 U/L CREATININE MG/DL IN SER/PLAS 0.73 0.57-1.00 mg/dL BILIRUBIN TOTAL 0.2 0.0-1.2 mg/dL LACTATE DEHYDROGENASE 141 135-214 U/L URIC ACID 5.2 2.4-5.7 mg/dL Lab specime ns received at a [facility].?See result details for the performing location information. Reason For Referral Reason 24w with kn own kidney stone, has ureteral stent in place, was hospitalized at [facility] last week but was not pleased with urology care there; wants to be referred to a different urologist but one who has privileges at [facility] if possible??? not sure if any adventist ones also operate at [facility] Diagnosis 1 Kidney stone complic ating (O26.839) Referral Organization [facility] Referring Provider First Name Laura Referring Provider Last Name Melchor Referring Provider Speciality OB - Gynec ology Referred Provider Specialty Urology General Notes Lona Emery 12/07 12:27:30 PM >Per Dr Cassidy - she saw Dr Duong less than a month ago- and she will need to follow up with him until after -closed referral, Lona Emery 12/08/2023 12:28:54 PM >Faxed referral to urology to see if they will treat her, Lona Emery 12/14/2023 09:10:48 AM >once received if approves referral they will contact pt to schedule Referral Priority Stat Medications Medication SIG (Take, Route, Frequency, Duration) Notes Start Date End Date Status HYDROcodone-Acetaminophen 7.5-325 MG Tablet TAKE 1 TABLET BY MOUTH EVERY 4 HOURS NEEDED FOR MODERATE PAIN Oral; Duration: 2 Days Active Sprintec 28 0.25-35 MG-MCG Tablet 1 tablet Orally Once a day; Duration: 84 days 05/16/2024 Active Ibuprofen 600 MG Tablet Oral; Duration: 8 Days Active Social History Tobacco Use: Social History Observation Description Date Details (start date - stop date) Current Smoker NA - NA Sex Assigned At : Social History Observation Description Sex Assigned At Female Social History Drugs/Alcohol: Social Info Question Answer Notes Drugs Have you used drugs other than those for medical reasons in the past 12 months? No Alcohol Screen Did you have a drink containing alcohol in the past year? No Points 0 Interpretation Negative Tobacco Use: Social Info Question Answer Notes Tobacco Control (Standard) Tobacco use: Current smoker How often do you smoke cigarettes? Every day Tobacco Use/Smoking Are you a former smoker Tobacco use other than smoking: Are you an other tobac co user? Yes Problems Problem Type SNOMED Code ICD Code Onset Dates Problem Status W/U Status Risk Notes Problem Kidney stone (68706545) Kidney stone (N20.0) Active confirmed Problem (568765865) (O03.9) 07/17/19 21 Active confirmed Spontaneous , unspecified, without mention of complication Problem Third trimester (38695822) Encounter for supervision of other normal , third trimester (Z34.83) Active confirmed Problem Bruising (373620686) Abnormal bruising (R23.8) 10/04/19 20 Active confirmed Easy bruising Problem Pain in female genitalia on intercourse (98178172) Dyspareunia in female (N94.10) Active confirmed Problem Menstrual disorder (024787839) Irregular menses (N92.6) Active confirmed Vital Signs Blood pressure diastolic 82 mm Hg 05/16/2024 Height 65 in 05/16/2024 Blood pressure systolic 130 mm Hg 05/16/2024 Weight 166.4 lbs 05/16/2024 BMI 27.69 kg/m2 05/16/2024 Encounters Encounter Location Date Provider Diagnosis [facility] [address] [facility] [address] [place] [address] 11/10/2023 [facility] [address] [facility] [address] [place] [address] 12/22/2023 [facility] [address] [place] [address] 01/05/2024 [facility] [address] [facility] [address] [place] [address] 01/30/2024 [facility] [address] [facility] [address] [place] [address] 02/06/2024 [facility] [address] [facility] [address] [place] [address] 02/14/2024 Jovita Zahner Kidney stone N20.0 [facility] [address] [place] [address] 02/16/2024 Laura [facility] [address] [place] [address] 02/23/2024 Laura [facility] [address] [place] [address] 02/29/2024 Laura [facility] [address] [place] [address] 03/06/2024 [facility] [address] [place] [address] 03/12/2024 Shelley Coffmanlee [facility] [address] [place] [address] 03/21/2024 [facility] [address] [place] [address] 03/21/2024 Laura Roche [facility] [address] [place] [address] 05/17/2024 [facility] [address] [facility] [address] [place] [address] 03/12/2024 Laura [place] [facility] G89.18 [facility] [address] [place] [address] 05/16/2024 Laura [place] exam Z39. 2 [facility] [address] [place] [address] 11/30/2023 Laura Roche 24 weeks gestation o f Z3A.24 and Encounter for related examination in second trimester Z34.82 [facility] [address] [place] [address] 12/28/2023 Laura Roche Encounter for related examination in third trimester Z34.93 and 28 weeks gestation of Z3A.28 [facility] [address] [facility] [address] [place] [address] 01/25/2024 Violet Mcqueen Third trimester Z34.93 and 32 weeks gestation of Z3A.32 [facility] [address] [facility] [address] [place] [address] 02/08/2024 Laura Roche Encounter for supervision of other normal , third trimester Z34.83 and 34 weeks gestation of Z3A.34 [facility] [address] [facility] [address] [place] [address] 02/14/2024 Violet Mcqueen Encounter for supervision of other normal , third trimester Z34.83 ; 35 weeks gestation of Z3A.35 and Kidney stones N20.0 [facility] [address] [facility] [address] [place] [address] 02/22/2024 Laura Roche 36 weeks gestation o f Z3A.36 and Encounter for supervision of other normal , third trimester Z34.83 [facility] [address] [facility] [address] [place] [address] 02/29/2024 Laura Roche 37 weeks gestation o f Z3A.37 and Encounter for supervision of other normal , third trimester Z34.83 [facility] [address] [place] [address] 03/01/2024 Shannon Monsivais Assessments Encounter Date Diagnosis (ICD Code) Assessment Notes Treatment Notes Treatment Clinical Notes Section Notes 02/14/2024 35 weeks gestation of (ICD-10 - Z3A.35) 02/14/2024 Encounter for supervision of other normal , third trimester (ICD-10 - Z34.83) 02/14/2024 Kidney stone (ICD-10 - N20.0) 03/12/2024 Postoperative pain (ICD-10 - G89.18) - incision healing well - no signs/sx of PP depression - rx percocet 5/325mg x 10 tabs - has urology follow-up scheduled re: stones - RTC in 4w for PP exam or PRN 05/16/2024 exam (ICD-10 - Z39.2) - incision well healed - rx sprintec - advised to contact surgeon from recent laparoscopy for additional narcotic pain medication - RTC for annual or PRN 11/30/2023 Encounter for related examination in second trimester (ICD-10 - Z34.82) 11/30/2023 24 weeks gestation of (ICD-10 - Z3A.24) 12/28/2023 28 weeks gestation of (ICD-10 - Z3A.28) 12/28/2023 Encounter for related examination in third trimester (ICD-10 - Z34.93) 02/08/2024 34 weeks gestation of (ICD-10 - Z3A.34) 02/08/2024 Encounter for supervision of other normal , third trimester (ICD-10 - Z34.83) 02/22/2024 36 weeks gestation of (ICD-10 - Z3A.36) 02/22/2024 Encounter for supervision of other normal , third trimester (ICD-10 - Z34.83) 02/29/2024 37 weeks gestation of (ICD-10 - Z3A.37) 02/29/2024 Encounter for supervision of other normal , third trimester (ICD-10 - Z34.83) 01/25/2024 32 weeks gestation of (ICD-10 - Z3A.32) 01/25/2024 Third trimester (ICD-10 - Z34.93) 02/14/2024 Kidney stones (ICD-10 - N20.0) Plan Of Treatment No Information Insurance Providers Payer Name Payer Address Payer Phone Subscriber Number Group Number Insured Name Patient Relationship to Insured Coverage Start Date Coverage End Date [employer] [address] [address] [place], [place] [id number] [phone] [id number] Lanny Oseguera Self - patient is the insured Medical (General) History Medical History History ICD Code anxiety kidney steones Anemia COVID undefined chlamydia kidney stones Surgical History Surgery Date(Month/Year) T&A-1998 c/s 2023 Hospitalization History Reason Date(Month/Year) c/s 2023 vaginal delivery COVID
--- OUTSIDE RECORDS SUMMARY | 2024-11-07 15:08 | XMS_ITS | Encounter Summary ---
Author Organization Healthcare Address [address] [place] [address] Care Team Providers Care Baseball Scout Name Role Phone Naima Cruz Primary Care Provider [phone] Anastasiia Garcia APRN Primary Care Provider [phone] Encounter Details Date Type Department Care Team (Late st Contact Info) Description 02/14/2024 Orders Only External Location [address] [place] [address] Provider, External Social History Tobacco Use Types Packs/Day Years Used Date Smoking Tobacco: Former Cigarettes 2011 Smokeless Tobacco: Never Alcohol Use Standard Drinks/Week Comments Not Currently 0 (1 standard drink = 0.6 oz pur e alcohol) PHQ-2 Answer Date Recorded Patient Health Questionnaire-2 Score 0 01/03/2024 Comments Yes Sex and Gender Information Value Date Recorded Sex Assigned at Female 01/09/2024 10:29 PM EDT Legal Sex Female 8:11 PM EDT Gender Identity Female 01/09/2024 10:29 PM EDT Sexual Orientation Not on file documented as of this encounter Plan of Treatment Not on file documented as of this encounter Procedures Procedure Name Priority Date/Time Associated Diagnosis Comments CT MSK OUTSIDE IMAGES 02/14/2024 1:50 AM EDT documented in this encounter Results * CT MSK OUTSIDE IMAGES (02/14/2024 1:50 AM EDT) Anatomical Region Laterality Modality Computed Tomogra phy 02/14/2024 1:50 AM EDT us External Provider IMG CT PROCEDURES Final Result documented in this encounter Visit Diagnoses Not on filedocumented in this encounter Additional Health Concerns Assessment Noted Time A fall risk assessment has been complete d for the patient 01/03/2024 1:27 PM EDT A Body Mass Index follow-up plan has been documented for the patient 01/22/2024 5:28 PM EDT documented as of this encounter Care Teams Baseball Scout Relationship Specialty Start Date End Date Naima Cruz PA [address] [place], [place] [phone] PCP - General 09/12/20 02/27/24 Anastasiia Garcia APRN [address] [place] [id number] PCP - General 02/28/24 documented as of this encounter
--- OUTSIDE RECORDS SUMMARY | 2024-11-07 15:08 | XMS_ITS | Clinical Summary ---
Author Organization Healthcare Address [address] [place] [address] Care Team Providers Care Edging Machine Setter Name Role Phone RadhaAnastasiia ray Azam RUIZ Primary Care Provider [phone] Allergies No known active allergies Medications Vit-Fe Fumarate-FA ( VITAMINS PO) Take 1 tablet by mouth every night. Active acetaminophen (Tylenol) 500 MG tablet Take 2 tablets (1,000 mg) by mouth every 6 (six) hours if needed for pain. 100 tablet 4 Active cyclobenzaprine (Flexeril) 5 MG tablet Take 1 tablet (5 mg) by mouth 3 (three) times a day. 30 tablet 4 Active cyclobenzaprine (Flexeril) 5 MG tablet Take 1 tablet (5 mg) by mouth 3 (three) times a day. 30 tablet 4 Active cyclobenzaprine (Flexeril) 5 MG tablet Take 1 tablet (5 mg) by mouth 3 (three) times a day. 30 tablet 4 Active Additional Information Patient not taking.Reported on 02/28/2024 famotidine (Pepcid) 20 MG tablet Take 1 tablet (20 mg) by mouth twice a day. Active nystatin (Mycostatin) cream APPLY TOPICALLY TO THE AFFECTED AREA TWICE DAILY 4 Active tamsulosin (Flomax) 0.4 MG 24 hr capsule TAKE 1 CAPSULE BY MOUTH DAILY 30 MINUTES AFTER THE SAME MEAL Active tamsulosin (Flomax) 0.4 MG 24 hr capsuleIndicati ons:Ureteral stone Take 1 capsule (0.4 mg) by mouth 1 (one) time each day with dinner. 30 capsule 4 03/22/20 25 Active Active Problems Problem Noted Date Diagnosed Date Right ureteral stone 01/12/2024 Family History Medical History Relation Name Comments Kidney Stones Father Kidney Stones Mother Anesthesia problems Neg Hx Malig Hyperthermia Neg Hx Relation Name Status Comments Father Mother Social History Tobacco Use Types Packs/Day Years Used Date Smoking Tobacco: Former Cigarettes 0 05/02/2023 - 2011 Smokeless Tobacco: Never Tobacco Cessation:Counseling Given: Not Answered Alcohol Use Standard Drinks/Week Comments Not Currently 0 (1 standard drink = 0.6 oz pur e alcohol) PHQ-2 Answer Date Recorded Patient Health Questionnaire-2 Score 0 03/12/2024 Comments No Sex and Gender Information Value Date Recorded Sex Assigned at Female 01/09/2024 10:29 PM EDT Legal Sex Female 8:11 PM EDT Gender Identity Female 01/09/2024 10:29 PM EDT Sexual Orientation Not on file Last Filed Vital Signs Vital Sign Reading Time Taken Comments Blood Pressure 126/87 03/12/2024 10:21 AM EST Pulse 73 03/12/2024 10:21 AM EST Temperature 36.8 C (98.2 F) 03/12/2024 10:21 AM EST Respiratory Rate 18 03/12/2024 10:21 AM EST Oxygen Saturation 99% 03/12/2024 10:21 AM EST Inhaled Oxygen Concentration - - Weight 73.2 kg (161 lb 6 oz) 03/12/2024 10:21 AM EST Height 165.1 cm (5' 5 ) 03/12/2024 10:21 AM EST Body Mass Index 26.85 03/12/2024 10:21 AM EST Plan of Treatment Health Maintenance Due Date Last Done Comments Dental Oral Exam 1997 Dental Prophylaxis 1997 Dental X-Ray: Bitewings 1997 Dental X-Ray: Full Mouth 1997 [facility]-Infant/Child/Adol SDOH Screenings 1997 [facility]-Varicella Vaccines (1 of 2 - 13+ 2-dose series) 2010 HPV Vaccines (3 - 3-dose series) 11/27/2014 09/04/2014, 05/08/2014 [facility]- SDOH Screenings 2015 [facility]-Adult SDOH Screenings 2015 [facility]-Hepatitis B Vaccines (1 of 3 - 19+ 3-dose series) 01/19/2016 [facility]-Pap Smear 2018 [facility]-VBDBR-15 Vaccine (1 - 2023- season) 2024 [facility]-Influenza Vaccine (#1) 2024 [facility]-Depression Screening 03/12/2025 03/12/2024 [facility]-DTaP,Tdap,and Td Vaccines (2 - Td or Tdap) 02/21/2034 02/22/2024 [facility]-Zoster Vaccines (1 of 2) 2047 [facility]-HIV Screening Completed 09/29/2022 [facility]-Hepatitis C Screening Completed 08/15/2023, [facility]-Obesity Intervention Completed 024, 02/28/2024, 01/16/2024, Additional history exists [facility]-HIB Vaccines Aged Out No longer e ligible based on patient's age to complete this topic [facility]-Hepatitis A Vaccines Aged Out No longer eligible based on patient's age to complete this topic [facility]-IPV Vaccines Aged Out No longer e ligible based on patient's age to complete this topic [facility]-Pneumococcal Vaccine: Pediatrics (0 to 5 Years) and At-Risk Patients (6 to 49 Years) Aged Out No longer eligible based on patient's age to complete this topic [facility]-Rotavirus Vaccines Aged Out No lo nger eligible based on patient's age to complete this topic Medical Devices Implanted Type Area Bundles Hanger Device Identifier Shelf Expiration Date Model / Serial / Lot Stent Ureteral Double Pigtail Pos 6fr 26cm - [id number] Implanted:Qty: 1 on 01/12/2024 by Darrin Tejeda MD at [facility] Stent Right: [id number] 10/19/2025 [id number] / / [id number] Procedures Procedure Name Priority Date/Time Associated Diagnosis Comments HEPATITIS C ANTIBODY - ED W/REFLEX TO HCV QUANT PCR STAT 09/29/2022 4:23 PM EDT HIV 1/2 ANTIBODY/ANTIGEN SCREEN WITH REFLEX TO HIV I/II DIFFERENTIATION STAT 09/29/2022 4:23 PM EDT from Last 3 Months or Most Recently Relevant to Health Maintenance Results * HIV 1 & 2 Antibody/Antigen Screen (09/29/2022 4:23 PM EDT) [facility] HIV 1 & 2 Antibody/Antigen Screen Non Reactive Non Reactive 09/29/2022 6:31 PM EDT [facility] Comment:Screening for HIV 1 & 2 antibodies, and P24 antigen is NONREACTIVE. No confirmatory testing is required. Blood Venous blood specimen / Unknown Venipuncture / Unknown 09/29/2022 4:23 PM EDT 09/29/2022 4:46 PM EDT us Madison Rivera MD LAB BLOOD ORDERABLES Final Re sult Performing Organization Address [facility] Co de Phone Number [facility] [address] [place] [address] * Hepatitis C Antibody - ED (09/29/2022 4:23 PM EDT) [facility] Hepatitis C Antibody Negative Negative 09/29/2022 5:55 PM EDT [facility] Blood Venous blood specimen / Unknown Venipuncture / Unknown 09/29/2022 4:23 PM EDT 09/29/2022 4:46 PM EDT us Madison Rivera MD LAB BLOOD ORDERABLES Final Re sult Performing Organization Address City/[facility] Co de Phone Number [facility]ARE [facility] [address] [place] [address] from Last 3 Months or Most Recently Relevant to Health Maintenance Insurance DENTAL CLAIMS FOR[facility]LY [facility] MEDICAID Advance Directives * Full Code (Latest Code Status on File) Date Activated Date Inactivated Comments 01/22/2024 5:26 PM 01/22/2024 7:39 PM Question Answer Comments Patient has decision-making capacity? Yes Care Teams Edging Machine Setter Relationship Specialty Start Date End Date Anastasiia Garcia APRN [address] [place] [address] PCP - General 02/28/24
--- OUTSIDE RECORDS SUMMARY | 2024-11-07 15:09 | XMS_ITS | Referral Summary ---
Author Organization [employer] ([place], [place], [place], [place]) Address [address] [place] [address] Care Team Providers Care Director Of Sustainable Design Name Role Phone Anastasiia Garcia BALLISTIC EXPERT Primary Care Provider [phone] Allergies No known active allergies Medications tamsulosin (FLOMAX) 0.4 mg Cap 24 hr capsuleIndicati ons:urolithiasi s Take 1 capsule (0.4 mg total) by mouth daily. Active Active Problems Problem Noted Date Diagnosed Date Right flank pain 11/29/2023 Hydronephrosis, right 11/24/2023 Social History Tobacco Use Types Packs/Day Years Used Date Smoking Tobacco: Never Smokeless Tobacco: Never Tobacco Cessation:Counseling Given: Not Answered Alcohol Use Standard Drinks/Week Comments Never 0 (1 standard drink = 0.6 oz pur e alcohol) Food Insecurity Answer Date Recorded Food run out past 12 months Not on file 10/31 Food did not last past 12 months Not on file 11/24/2023 Employment Answer Date Recorded Help finding and keeping a job Not on file 0 11/24/2023 Family and Community Support Answer Alfredo e Recorded Help with Day to Day Activities Not on file 11/28/2023 Feeling Lonely or Isolated Not on file 11/27 Educational Attainment Answer Date Trevor rded Speak language other than Estonian at home Not on file 11/28/2023 Want help with school or training Not on file 11/28/2023 Substance Use Answer Date Recorded Used prescription meds for non-medical reasons N ot on file 11/28/2023 Used illegal drugs past 12 months Not on file 11/28/2023 Comments No Sex and Gender Information Value Date Recorded Sex Assigned at Female 10/27/2021 4:06 PM CDT Legal Sex Female 4:06 PM CDT Gender Identity Female 10/27/2021 4:06 PM CDT Sexual Orientation Not on file Last Filed Vital Signs Vital Sign Reading Time Taken Comments Blood Pressure 130/73 11/29/2023 6:27 PM EDT Pulse 74 11/29/2023 6:27 PM EDT Temperature 36.9 C (98.4 F) 11/29/2023 6:27 PM EDT Respiratory Rate 18 11/29/2023 6:27 PM EDT Oxygen Saturation 97% 11/27/2023 1:24 PM EDT Inhaled Oxygen Concentration - - Weight 72.1 kg (159 lb) 11/29/2023 6:27 PM EDT Height 165.1 cm (5' 5 ) 11/24/2023 11:25 AM EDT Body Mass Index 26.46 11/24/2023 11:25 AM EDT Functional Status * Are you deaf or do you have serious difficulty hearing? Answer Date of Assessment Author No 11/27/2023 5:01 PM CDT Aicha Ellis RN * Are you blind or do you have serious difficulty seeing, even when wearing glasses? Answer Date of Assessment Author No 11/27/2023 5:01 PM CDT Aicha Ellis RN * Do you have serious difficulty walking or climbing stairs? Answer Date of Assessment Author No 11/27/2023 5:01 PM EVIET Aicha Ellis RN * Do you have serious difficulty dressing or bathing? Answer Date of Assessment Author No 11/27/2023 5:01 PM CDT Aicha Ellis RN * Because of a physical, mental, or emotional condition, do you have serious difficulty doing errandsalone such as visiting the doctor? Answer Date of Assessment Author No 11/27/2023 5:01 PM CDT Aicha Ellis RN Mental Status * Because of a physical, mental, or emotional condition, do you have serious difficulty concentrating, remembering, or making decisions? (5 years old or older) Answer Entry Date Author No 11/27/2023 5:01 PM CDT Aicha Ellis RN Plan of Treatment Not on file Medical Devices Implanted Type Area Product Support Consultant Device Identifier Shelf Expiration Date Model / Serial / Lot Stent Uret Percflx + [id number] - [id number] Implanted:Qty : 1 on 11/27/2023 by Bjorn Hyatt MD at [facility] IMPLANTS Right: Ureter [employer]/GYNE COLOGY 05/09/2026 [id number] / / [id number] Insurance Advance Directives For more information, please contact: [phone] * Full Code (Latest Code Status on File) Date Activated Date Inactivated Comments 11/24/2023 1:39 PM 11/27/2023 6:14 PM Care Teams Director Of Sustainable Design Relationship Specialty Start Date End Date Anastasiia Garcia, MICHAEL [address] [place] [address] PCP - General Family Medicine 11/29/23
--- OUTSIDE RECORDS SUMMARY | 2024-11-07 15:09 | XMS_ITS | Clinical Summary ---
Author Organization [employer] ([place], [place], [place], [place]) Address [address] [place] [address] Care Team Providers Care Electrical Sign Wirer Name Role Phone Anastasiia Garcia CLAM PICKER Primary Care Provider [phone] Allergies No known active allergies Medications tamsulosin [...] Date Trevor rded Speak language other than Romansh at home Not on file 11/28/2023 Want [...] Mass Index 26.46 11/24/2023 11:25 AM EDT Plan of Treatment Health Maintenance Due Date Last Done Comments Depression Screening (12+) 2009 HIV Screening 01/19/2012 Hepatitis C Screening 2015 DTAP/TDAP/TD VACCINES (1 - Tdap) 01/19/2016 Pap Smear 2018 COVID-19 VACCINE ( - 2023-2 5 season) 2024 Tobacco Cessation Counseling and Screening (12+) 11/28/2024 11/29/2023 Influenza Vaccine (#1) 2024 Pneumococcal Vaccine: 0-49 Years Aged Out No longer eligible based on patient's age to complete this topic Medical Devices Implanted Type Area Road Design Draftsperson Device Identifier Shelf Expiration Date Model / Serial / Lot Stent Uret Percflx + [id number] - [id number] Implanted:Qty : 1 on 11/27/2023 by Bjorn Hyatt MD at [facility] IMPLANTS Right: U[employer]ter [employer]UR[employer]/GYNE COLOGY 05/09/2026 [id number] / / [id number] Insurance Advance Directives For more information, please contact: [phone] * Full Code (Latest Code Status on File) Date Activated Date Inactivated Comments 11/24/2023 1:39 PM 11/27/2023 6:14 PM Care Teams Electrical Sign Wirer Relationship Specialty Start Date End Date Anastasiia Garcia NP [address] [place] [address] PCP - General Family Medicine 11/29/23
[2024-11-07 16:31] LABS: Hematocrit 38.1 % (37.0-47.0); Hemoglobin 12.2 g/dL (12.2-16.2); Immature Granulocytes % 0.3 %; Mean Corpuscular HGB Conc 32.0 g/dL (31.8-35.4); Mean Corpuscular Hemoglobin 26.1 pg (27.0-31.2); Mean Corpuscular Volume 81.4 fl (81-99); Nucleated Red Blood Cells % 0 %; Platelet Count 304 K/mm3 (142-424); Red Blood Count 4.68 M/mm3 (4.20-5.40); Red Cell Distribution Width-SD 42.1 fL; White Blood Count 6.6 K/mm3 (4.8-10.8)
[2024-11-07 17:09] LABS: Alanine Aminotransferase 14 U/L (12-78); Albumin Level 4.7 g/dl (3.5-5.0); Alkaline Phosphatase 61 U/L (38-126); Anion Gap 18.2 mEq/L (5-15); Aspartate Amino Transferase 21 U/L (14-36); Bilirubin,Direct 0.3 mg/dl (0.0-0.4); Bilirubin,Indirect 0.1 mg/dL (0.0-0.9); Bilirubin,Total 0.4 mg/dl (0.2-1.3); Bilirubin,Unconjugated 0.1 mg/dL (0.0-1.1); Blood Urea Nitrogen 15 mg/dl (7-17); Calcium 9.8 mg/dl (8.4-10.2); Carbon Dioxide 22 mmol/L (22.0-30.0); Chloride 104 mmol/L (98-107); Cholesterol 147 mg/dl (140-200); Creatinine,Serum 0.60 mg/dl (0.52-1.04); Estimated Glomerular Filt Rate 120 ml/min (>60); GFR (African American) 145 ML/MIN (>60); Glucose 90 mg/dl (74-100); HDL Cholesterol 40 mg/dl (40-60); Magnesium 1.8 mg/dl (1.6-2.3); Potassium 4.2 mmoL/L (3.5-5.1); Sodium 140 mmol/L (136-145); Total Protein,Serum 7.4 g/dl (6.3-8.2); Triglycerides 115 mg/dl (30-150)
[2024-11-07 17:27] LABS: Free T4 (Free Thyroxine) 1.04 ng/dl (0.78-2.19)
[2024-11-07 17:39] LABS: Thyroid Stimulating Hormone 1.14 uIU/mL (0.465-4.68)
== END 2024-11-07 23:59 | disposition home or self-care (01) ==
LOC: LAB 15:05
PROVIDERS: PCP Nurse Practitioner; Visit Provider Nurse Practitioner
DX: Q21.0 Ventricular septal defect (principal); R00.2 Palpitations; R40.0 Somnolence
CPT/HCPCS: 36415; 80048; 80061; 80076; 83735; 84439; 84443; 85025; 93270